=== PATIENT | male | born 1940 | race Caucasian/White ===

== ENCOUNTER 2018-08-27 14:11 | Outpatient (REF) | payer MEDICARE, BC, SELFPAY ==
[2018-08-27 18:39] LABS: Anion Gap 8.1 mmol/L (3-11); BUN 21 mg/dL (7-18); CO2 30.9 mmol/L (21.0-32.0); CREATININE 1.47 mg/dL (0.70-1.30); Calcium 9.3 mg/dL (8.5-10.1); Chloride 102 mmol/L (98-107); Estimated GFR 46.57 (mL/min/1.73m2); Glucose 88 mg/dL (70-100); Potassium 4.1 mmol/L (3.5-5.1); Sodium 141 mmol/L (136-145)
[2018-08-27 18:42] LABS: HCT 41.7 % (40.0-50.0); HGB 14.4 g/dL (13.5-17.5); Mean Corp. HGB Concentration 34.5 g/dL (32.0-36.0); Mean Corpuscular Hemoglobin 31.9 pg (27.0-33.0); Mean Corpuscular Volume 92.3 fL (80-95); Mean Platelet Volume 10.2 fL (8.0-11.0); Platelet Count 171 x1000/uL (130-400); RBC 4.52 m/cumm (4.50-6.00); RBC Distribution Width 12.5 % (11.8-14.1); White Blood Cell Count 6.37 k/cumm (4.4-10.8)
== END 2018-08-27 14:31 ==
LOC: NCHCN 14:11
PROVIDERS: PCP Internal Medicine; Visit Provider Family Medicine
DX: E55.9 Vitamin D deficiency, unspecified (principal); N18.1 Chronic kidney disease, stage 1; K51.90 Ulcerative colitis, unspecified, without complications
CPT/HCPCS: 80048; 82306; 85027

== ENCOUNTER 2018-09-09 00:41 | Outpatient (CLI) | payer MEDICARE, BC, SELFPAY ==
--- NOTE | 2018-09-09 14:00 | DI.CT_ITS ---
SYMPTOM/DIAGNOSIS: HEMOPTYSIS, R04.2, INFLUENZA WITH PNEUMONIA, J09.X1, FORMER SMOKER CHEST CT: CT scan of the chest was performed following the uneventful half dose administration of intravenous contrast material. There are no priors for comparison. Coronary artery calcifications are present. No significant thoracic adenopathy, pleural effusion or pneumothorax is identified. There is a small ground glass opacity in the left lower lobe laterally. No other focal consolidating infiltrates are seen. The tracheobronchial tree is unremarkable. No non calcified pulmonary nodules are identified. Degenerative changes are seen in the spine. The upper abdominal images show cysts in the right kidney. IMPRESSION: Small ground glass opacity in the left lower lobe laterally. Differential considerations include atelectasis, infectious or inflammatory pneumonia.
[2018-09-09 14:37] LABS: CREATININE 1.56 mg/dL (0.70-1.30); Estimated GFR 43.49 (mL/min/1.73m2)
[2018-09-09] MEDS: Omnipaque 350 MG/ML 100 ML BTL IJ (15:02)
== END 2018-09-09 01:01 ==
PROVIDERS: PCP Internal Medicine; Visit Provider Family Medicine
DX: R04.2 Hemoptysis (principal); J09.X1 Influenza due to identified novel influenza A virus with pneumonia; R91.1 Solitary pulmonary nodule; Z87.891 Personal history of nicotine dependence
CPT/HCPCS: 36415; 71260; 82565; J3490

== ENCOUNTER 2018-10-14 08:07 | Outpatient (REF) | payer MEDICARE, BC, SELFPAY ==
[2018-10-14 12:42] LABS: Cholesterol 198 mg/dL (50-200); HDL Cholesterol 51 mg/dL (40-60); LDL CHOLESTEROL 116 mg/dL (<100); Triglyceride 136 mg/dL (30-150)
== END 2018-10-14 08:27 ==
LOC: NCHCN 08:07
PROVIDERS: PCP Family Medicine; Visit Provider Family Medicine
DX: E78.5 Hyperlipidemia, unspecified (principal)
CPT/HCPCS: 80061; 83721

== ENCOUNTER 2020-01-04 13:16 | Outpatient (REF) | payer MEDICARE, BC, SELFPAY ==
[2020-01-04 19:33] LABS: HGB 13.5 g/dL (13.5-17.5); Mean Corp. HGB Concentration 33.8 g/dL (32.0-36.0); Mean Corpuscular Hemoglobin 30.9 pg (27.0-33.0); Mean Corpuscular Volume 91.5 fL (80-95); Mean Platelet Volume 10.2 fL (8.0-11.0); Platelet Count 264 x1000/uL (130-400); RBC 4.37 m/cumm (4.50-6.00); White Blood Cell Count 6.67 k/cumm (4.4-10.8)
[2020-01-04 19:50] LABS: Anion Gap 9.6 mmol/L (3-11); BUN 18 mg/dL (7-18); CO2 28.4 mmol/L (21.0-32.0); CREATININE 1.33 mg/dL (0.70-1.30); Calcium 9.6 mg/dL (8.5-10.1); Chloride 100 mmol/L (98-107); Estimated GFR 52.14 (mL/min/1.73m2); Glucose 85 mg/dL (74-106); NT-proBNP 85 pg/mL (<300); Potassium 3.9 mmol/L (3.5-5.1); Sodium 138 mmol/L (136-145)
[2020-01-06 10:32] LABS: PSA, Diagnostic 1.2 ng/mL (0.0-6.5)
== END 2020-01-04 13:36 ==
LOC: NCHCN 13:16
PROVIDERS: PCP Family Medicine; Visit Provider Family Medicine
DX: N18.1 Chronic kidney disease, stage 1 (principal); R60.9 Edema, unspecified; I82.402 Acute embolism and thrombosis of unspecified deep veins of left lower extremity; N40.0 Benign prostatic hyperplasia without lower urinary tract symptoms
CPT/HCPCS: 80048; 85027; 83880; 84153

== ENCOUNTER 2020-01-06 03:56 | Outpatient (CLI) | payer MEDICARE, BC, SELFPAY ==
[2020-01-06] MEDS: Omnipaque 350 MG/ML 100 ML BTL IJ (10:40)
--- NOTE | 2020-01-06 10:50 | DI.CT_ITS ---
EXAM: CT CHEST PE CTA CLINICAL HISTORY: DYSPNEA ON EXERTION,R06.09,LT ACUTE DVT,I82.402, ? PE TECHNIQUE: COMPARISON: No exams were available for comparison FINDINGS: CT angiography of the chest was performed with intravenous infusion of 85 cc of Omnipaque 350. Image s obtained through the upper abdomen show an incompletely imaged cyst the right kidney and unremarkab le appearance of visualized portions of left kidney, adrenals, liver, spleen, and pancreas. There is no evidence of mediastinal or hilar adenopathy. Tracheobronchial tree appears intact. No p leural effusion seen. Thoracic aorta is of normal diameter and there is no evidence of dissection. There are multiple pulmonary emboli in lower lobe vessels bilaterally involving lobar, segmental, and subsegmental pulmonary arterial circulation. No saddle embolus or other central embolus seen. IMPRESSION: Examination is positive for multiple pulmonary emboli in lower lobe pulmonary arterial vessels bilate rally. No evidence of right heart strain.
== END 2020-01-06 04:16 ==
PROVIDERS: PCP Family Medicine; Visit Provider Family Medicine
DX: I26.99 Other pulmonary embolism without acute cor pulmonale (principal)
CPT/HCPCS: 71275; J3490

== ENCOUNTER 2020-08-06 13:42 | Outpatient (REF) | payer MEDICARE, BC, SELFPAY ==
--- NOTE | 2020-08-06 12:30 | SKI_PTH ---
PATIENT: Juaquin Brito LOC: [facility]#:[id number] AGE/SX: 79/M ROOM: RE08/06/[address]: Bruce Manning : 1940 BED: DIS: 08/06/2020 SPEC #: [id number] RECD: 08/07/20 12:34 STATUS: ALBERTO REQ #: [id number] ROB: 08/06/20 12:[address]: Bruce Manning DEPT: Surgical Specimen RECD BY: Radha Davidson ENTERED: 08/07/20 12:35 SP TYPE: CESAR JACKSON DR: Louis Pool Tissues: 1 - SKIN BIOPSY(SHAVE/PUNCH) 2 - SKIN BIOPSY(SHAVE/PUNCH) Procedures: SKIN LEVEL 4 Comments: [id number]
== END 2020-08-06 13:43 | disposition home or self-care (01) ==
LOC: NCHCN 13:42
PROVIDERS: PCP Family Medicine; Visit Provider Nurse Practitioner Family
DX: L85.8 Other specified epidermal thickening (principal); L81.8 Other specified disorders of pigmentation
CPT/HCPCS: 88305

== ENCOUNTER 2021-05-15 20:37 | Outpatient (REF) | payer MEDICARE, BC, SELFPAY ==
[2021-05-15 20:24] LABS: Anion Gap 10.6 mmol/L (3-11); BUN 21 mg/dL (7-18); CO2 25.4 mmol/L (21.0-32.0); CREATININE 1.3 mg/dL (0.70-1.30); Calcium 9.2 mg/dL (8.5-10.1); Chloride 103 mmol/L (98-107); Estimated GFR 53.39 (mL/min/1.73m2); Glucose 93 mg/dL (74-106); Potassium 4.3 mmol/L (3.5-5.1); Sodium 139 mmol/L (136-145)
[2021-05-20 10:33] LABS: Hepatitis C Ab w Rflx HCV PCR Negative (Negative)
== END 2021-05-15 20:38 | disposition home or self-care (01) ==
LOC: NCHCN 20:37
PROVIDERS: PCP Family Medicine; Visit Provider Family Medicine
DX: I10 Essential (primary) hypertension (principal); N18.1 Chronic kidney disease, stage 1; Z11.59 Encounter for screening for other viral diseases
CPT/HCPCS: 80048; 86803

== ENCOUNTER 2022-11-10 16:21 | Outpatient (REF) | payer MEDICARE, BC, SELFPAY ==
[2022-11-10 16:01] LABS: Anion Gap 7.5 mmol/L (3-11); BUN 18 mg/dL (7-18); CO2 26.5 mmol/L (21.0-32.0); CREATININE 1.3 mg/dL (0.70-1.30); Calcium 9.4 mg/dL (8.5-10.1); Calculated LDL 97 mg/dL (<100); Chloride 105 mmol/L (98-107); Cholesterol 174 mg/dL (<200); Estimated GFR 55.53 (mL/min/1.73m2); Glucose 86 mg/dL (74-106); HDL Cholesterol 56 mg/dL (40-60); Potassium 4.3 mmol/L (3.5-5.1); Sodium 139 mmol/L (136-145); Triglyceride 107 mg/dL (<150)
== END 2022-11-10 16:22 | disposition home or self-care (01) ==
LOC: NCHCN 16:21
PROVIDERS: PCP Family Medicine; Visit Provider Family Medicine
DX: I10 Essential (primary) hypertension (principal); N18.1 Chronic kidney disease, stage 1; E78.5 Hyperlipidemia, unspecified
CPT/HCPCS: 80048; 80061

== ENCOUNTER 2022-11-18 08:36 | Emergency (ER) | payer MEDICARE, BC, SELFPAY ==
[2022-11-18] VITALS (42 sets, daily range): BP systolic 111–140; BP diastolic 57–89; PULSE 49–90; RESP 11–18; TEMP 36.4; O2SAT 93–100
--- NOTE | 2022-11-18 08:30 | RT.EKG_ITS ---
APPROVED REPORT Exam: Resting ECG Reason for Exam: chest pain Patient Location: E HR:66 bpm ECG Measurements Heart Rate 66 AXIS WI 218 P 61 QRSd 96 QRS 43 QT 401 T 31 QTc 422 Conclusion Sinus rhythm...normal P axis, V-rate 60- 99 Borderline prolonged WI interval...WI >212, V-rate 50- 90 Narrow complex normal sinus rhythm at a rate of 66 with first-degree AV block and a WI interval of 21 8. Normal axis. QTc within normal limits. No ST segment abnormalities. No T wave inversions. No prior for comparison. No acute injury pattern.
--- NOTE | 2022-11-18 08:42 | W.ED.GENAD ---
Discharge Plan Disposition Patient Disposition: Home Discharge Details Clinical Impression: Chest pain, unspecified, Normocytic anemia Primary Care Provider: Louis Pool ED Provider: Louis Salazar Home Meds and New Rx's Prescriptions: Continued omeprazole 40 MG capsule,delayed release(DR/EC) 40 mg PO DAILY fluocinonide 30 GM cream 30 gm Topical PRN finasteride 5 MG tablet 5 mg PO DAILY cholecalciferol (vitamin D3) 50 mcg (2,000 unit) capsule 50 mcg PO DAILY lisinopril 30 mg tablet 30 mg PO DAILY amlodipine 5 mg tablet 5 mg PO DAILY Xarelto 10 mg tablet 10 mg PO DAILY Rx Instructions: for 35 days albuterol sulfate [Proventil HFA] 90 mcg/actuation HFA aerosol inhaler 1 inh inhalation Q4H sildenafil [Viagra] 50 mg tablet 50 mg PO DAILY PRN Rx Instructions: administer 30 minutes to 4 hours before activity mesalamine 1,000 mg suppository 1 g NM QHS ibuprofen 200 mg tablet 400 mg PO Q6H PRN aspirin [Aspir-81] 81 MG tablet,delayed release (DR/EC) 81 mg PO DAILY Discharge Instructions Instructions: Chest Pain (ED) Additional Instructions: Please read all of the information that accompanies these instructions. You were seen in the emergency department for your chest pain. Your blood work showed no sign of heart attack. Please schedule an appointment with your primary care provider later this week. Please return to the emergency department if develop any sweating with your chest pain any difficulty breathing or have any other concerns. Your blood work is similar to prior assessment and you have a mild anemia. If you develop black or bloody stools please return to the emergency department. Discharge Data Discharge Date/Time-TO BE ENTERED AT DEPARTURE: 11/18/22 13:39 Medical Decision Making This is an overall very well-appearing normothermic and not tachycardic 82-year-old male with left-sided chest pain for the past several hours concerning for multiple etiologies. His ECG is nonischemic and his chest pain is not typical for ACS as he lacks any symptoms associated with diaphoresis and any radiation. He certainly has risk factors for ACS based on his age and history of hypertension and hyperlipidemia. No recent URI nor any positional component to suggest pericarditis. PE certainly also a possibility as he has remotely had an unprovoked left lower extremity DVT although he has been adherent with his rivaroxaban. He has not been vomiting to suggest increased risk for esophageal rupture. No fevers nor cough to suggest increased risk for pneumonia. No rash to chest to suggest zoster. No history of trauma to suggest increased risk for pneumothorax or pulmonary contusions or rib fractures or rib contusions. He is not hypotensive nor is he a dialysis patient to suggest increased risk for tamponade. Given that he is adherent with his rivaroxaban will obtain a D-dimer to assess for PE. No tearing quality to suggest dissection. HEART SCORE Chest pain Diagnostic Protocol: - [History/Physical/Gestalt: Slightly Suspicious (0)] - [EKG: Normal and/or unchanged from prior EKG (0)] - [AGE: 65 and older (+2)] - [RISK FACTORS: 1 - 2 risk factors (+1)] - [TROPONIN: <= normal limit (0)] - TOTAL SCORE: 3 - Risk Factors: DM, current or recent smoker, HTN, HLD, family hx of CAD, obesity - INTERPRETATION: With a total score of 3 or less, risk of major cardiac event within six weeks 1.7%, likely lower with two negative troponins. [I explained to the patient that the risk of subsequent major cardiac event within 1 month is not 0, however risk predicted to be less than 2%. Patient verbalized understanding, accepts this risk and shared and the decision for discharge with PCP follow-up for further evaluation and management. They understand to return to the ED immediately with any worsening symptoms, new symptoms or other concerns.] 10:20 AM CBC with mild normocytic anemia. No leukocytosis. No thrombocytopenia negative age-adjusted D-dimer. CKD but no TEOFILO. Negative troponin. Normal magnesium. 11 AM I have asked health embossing unit operator Aaliyah to have the patient seen within the week by his primary care provider. 1:15 PM Repeat troponin negative. Patient discharged with return indications and outpatient PCP follow-up. Chronic conditions affecting the care of the patient: Prior DVT history of hypertension hyperlipidemia. History obtained from an outside historian: N/A External record review: [facility] [place] Diagnostic interpretations performed by me: [Per my independent interpretation chest x-ray shows:] No acute cardiopulmonary process on two-view chest. Per my independent interpretation EKG shows: Narrow complex normal sinus rhythm at a rate of 66 with first-degree AV block and a NM interval of 218. Normal axis. QTc within normal limits. No ST segment abnormalities. No T wave inversions. No prior for comparison. No acute injury pattern. Medications: Acetaminophen Social determinants of health affecting disposition: N/A Management discussed with: N/A Treatment/interventions considered: stress testing but will defer given low HEART score Response to therapies provided: pain improved w/acetaminophen & lidoderm patch. HPI General Date/Time Provider Initiated Documentation: 11/18/22 08:42. HPI Narrative: This is an 82-year-old male with a history of hypertension and hyperlipidemia and prior DVT on rivaroxaban who presents via private vehicle in the setting of left-sided chest pain that began this morning. Patient reports that at 6 AM he began to have pain in the left side of his chest. It was worse when taking a deep breath. It does not radiate. It is not associated with any diaphoresis. He has been adherent with his home medications. He denies routine tobacco and ethanol. He has had no rash to his chest. He has had no vomiting fevers nor any trauma to his chest. He denies history of coronary artery disease. He also denies history of diabetes. He is having no calf pain nor any lower extremity edema. He has not recently had a cough. Related Data Home Medications Medication Instructions Recorded Confirmed finasteride 5 mg tablet 5 mg PO DAILY 01/01/15 11/18/22 fluocinonide 0.05 % topical cream 30 gm topical PRN 01/01/15 11/18/22 omeprazole 40 mg capsule,delayed 40 mg PO DAILY 01/01/15 11/18/22 release aspirin 81 mg tablet,delayed 81 mg PO DAILY 01/29/15 11/18/22 release (Aspir-) albuterol sulfate 90 mcg/actuation 1 inh inhalation Q4H 12/16/21 11/18/22 aerosol inhaler (Proventil HFA) amlodipine 5 mg tablet 5 mg PO DAILY 12/16/21 11/18/22 cholecalciferol (vitamin D3) 50 50 mcg PO DAILY 12/16/21 11/18/22 mcg (2,000 unit) capsule ibuprofen 200 mg tablet 400 mg PO Q6H PRN 12/16/21 11/18/22 lisinopril 30 mg tablet 30 mg PO DAILY 12/16/21 11/18/22 mesalamine 1,000 mg rectal 1 g NM QHS 12/16/21 11/18/22 suppository rivaroxaban 10 mg tablet (Xarelto) 10 mg PO DAILY 12/16/21 11/18/22 sildenafil 50 mg tablet (Viagra) 50 mg PO DAILY PRN 12/16/21 11/18/22 Allergies Allergy/AdvReac Type Severity Reaction Status Date / Time apixaban [From Eliquis] Allergy Verified 11/18/22 08:46 PFSH All Active Problems (Updated 11/18/22 @ 11:14 by Louis Salazar MD) Chest pain, unspecified (Acute) Normocytic anemia (Acute) Pharyngoesophageal dysphagia (Acute) 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 (Acute) Medical History Acute deep vein thrombosis (DVT) of left lower extremity Adenomatous colon polyp Allergic rhinitis BPH (benign prostatic hyperplasia) Chronic eczematoid otitis externa Chronic kidney disease, stage 3 Colitis Deep vein blood clot of left lower extremity Dermatitis of both ear canals Diverticulitis Dysphagia, pharyngeal phase Erectile dysfunction Fatigue Hearing loss, left Hoarseness Hyperlipidemia Hypertension Lightheadedness Pill dysphagia Psoriasis Pulmonary emboli Renal insufficiency Ulcerative proctitis Umbilical hernia Vitamin D deficiency Surgical History History of bilateral carpal tunnel release History of colonoscopy Social History Smoking/Tobacco Use Status: Former Tobacco Use Smoking risk assessment performed?: Yes Alcohol Intake: never Drug use: Never Number of Children: 2 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 Head: Normocephalic, atraumatic. Eye: Pupils equal, round reactive to light. Extraocular eye movements intact. No conjunctival injection. No scleral icterus. Ear, nose, mouth, throat: Grossly normal inspection. Normal voice, handling secretions normally. Neck: Trachea midline. Cardiovascular: Well-perfused distal extremities. Regular rate and rhythm. Chest wall: No rash to chest wall. Left-sided chest pain is reproducible. Respiratory: Nonlabored respiration. Clear lungs bilaterally. Gastrointestinal: Nondistended abdomen. Soft nontender abdomen. Musculoskeletal: No significant lower extremity pitting edema. Moving all 4 extremities spontaneously. Skin: Normal for age and race, grossly normal temperature and turgor. No acute rash. Neurologic: Alert and appropriate, no apparent acute deficits. Psychiatric: Mood and manner are appropriate. Grooming and personal hygiene are appropriate.
--- NOTE | 2022-11-18 09:00 | DI.RAD_ITS ---
Exam(s) XR CHEST 2V PA LATERAL EXAM: XR CHEST 2V PA LATERAL CLINICAL HISTORY: Chest pain. TECHNIQUE: 2D digital imaging was performed. COMPARISON: CT CT CHEST W from 09/09/2018 FINDINGS: 2 views: Heart size is normal. The mediastinum is not widened. Lungs are clear. No infiltrates nor pleural effusions. IMPRESSION: No acute pulmonary findings. DATA REPOSITORY: RADIATION DOSE DELIVERED:
[2022-11-18 09:15] LABS: Abs Immature Grans 0.01 10^3/uL (0.0-0.06); Absolute Basophil Count 0.03 10^3/uL (0.0-0.2); Absolute Lymphocyte Count 1.71 10^3/uL (1.2-3.4); Absolute Monocyte Count 0.52 10^3/uL (0.1-0.8); Absolute Neutrophil Count 2.72 10^3/uL (1.2-6.7); Basophils % 0.6; HCT 38.3 % (40.0-50.0); HGB 13.1 g/dL (13.5-17.5); Immature Grans % 0.2; Lymphocytes % 33.6; MCH 31.5 pg (27.0-33.0); MCHC 34.2 % (32.0-36.0); MCV 92 fL (80-95); MPV 9.3 fL (8.0-11.0); Monocytes % 10.2; Neutrophils % 53.4; Platelet Count 177 10^3/uL (130-400); RBC 4.16 10^6/uL (4.36-5.78); RDW 12.4 % (11.8-14.1); RDW-SD 41.9 fL; WBC 5.09 10^3/uL (4.4-10.8)
[2022-11-18 09:39] LABS: ALT 22 U/L (16-63); AST 19 U/L (15-37); Albumin 3.8 g/dL (3.4-5.0); Alkaline Phosphatase 81 U/L (46-116); Anion Gap 6.3 mmol/L (3-11); BUN 18 mg/dL (7-18); Bilirubin, Total 0.7 mg/dL (0.2-1.0); CO2 28.7 mmol/L (21.0-32.0); CREATININE 1.5 mg/dL (0.70-1.30); Calcium 9.1 mg/dL (8.5-10.1); Chloride 106 mmol/L (98-107); Estimated GFR 46.77 (mL/min/1.73m2); Glucose 92 mg/dL (74-106); Magnesium 1.9 mg/dL (1.8-2.4); Potassium 3.9 mmol/L (3.5-5.1); Sodium 141 mmol/L (136-145); Total Protein 7.6 g/dL (6.4-8.2); Troponin I < 50 ng/L (<or=60)
[2022-11-18] MEDS: Acetaminophen 500 MG TAB 1000 MG PO (09:49)
[2022-11-18 09:52] LABS: D-Dimer 719 ng/mlFEU (<500)
[2022-11-18] MEDS: Lidocaine 5% Patch 1 PATCH TP (11:01)
[2022-11-18 13:06] LABS: Troponin I < 50 ng/L (<or=60)
--- NOTE | 2022-11-18 17:22 | NUR.NOTE ---
Nursing Note: Referral faxed to PCP for chest pain to be seen within 1 week. Did talk to Anitha at [facility] earlier in the day when the fax would not go through and gave her the information in case of that.
== END 2022-11-18 13:39 | disposition home or self-care (01) ==
PROVIDERS: Emergency Provider Emergency Medicine; PCP Family Medicine
DX: R07.9 Chest pain, unspecified (principal); D64.9 Anemia, unspecified
CPT/HCPCS: 80053; 93005; 99284; 71046; 83735; 84484; 85025; 85379; 93010; 99283

== ENCOUNTER 2023-05-07 11:05 | Outpatient (REF) | payer MEDICARE, BC, SELFPAY ==
[2023-05-07 14:25] LABS: HCT 40.5 % (40.0-50.0); HGB 13.8 g/dL (13.5-17.5); MCH 30.7 pg (27.0-33.0); MCHC 34.1 % (32.0-36.0); MCV 90 fL (80-95); MPV 9.8 fL (8.0-11.0); Platelet Count 181 10^3/uL (130-400); RDW 12.4 % (11.8-14.1); RDW-SD 40.2 fL; WBC 6.05 10^3/uL (4.4-10.8)
[2023-05-07 14:57] LABS: Iron 82 ug/dL (65-175); Total Iron Binding Capacity 279 ug/dL (250-450); Transferrin Sat 29 % (20-55)
[2023-05-07 14:59] LABS: Ferritin 64 ng/mL (26-388)
[2023-05-07 15:01] LABS: Folate 15.3 ng/mL (8.6-20.0); Vitamin B12 215 pg/mL (193-986)
== END 2023-05-07 11:06 | disposition home or self-care (01) ==
LOC: NCHCN 11:05
PROVIDERS: PCP Family Medicine; Visit Provider Family Medicine
DX: D64.9 Anemia, unspecified (principal); Z79.899 Other long term (current) drug therapy
CPT/HCPCS: 85027; 82607; 82728; 82746; 83540; 83550

== ENCOUNTER 2023-05-25 12:43 | Outpatient (REF) | payer MEDICARE, BC, SELFPAY ==
--- NOTE | 2023-05-25 11:15 | SKI_PTH ---
PATIENT: Juaquin Brito LOC: [facility] U#:[id number] AGE/SX: 82/M ROOM: RE05/25/[address]: Bobo Saab MD : 1940 BED: DIS: 05/25/2023 SPEC #: [id number] RECD: 05/25/23 17:58 STATUS: ALBERTO REQ #: [id number] ROB: 05/25/23 11:[address]: Bobo Saab DEPT: Surgical Specimen RECD BY: Radha Davidson ENTERED: 05/25/23 17:59 SP TYPE: CESAR JACKSON DR: Louis Pool Tissues: 1 - SKIN BIOPSY(SHAVE/PUNCH) Procedures: SKIN LEVEL 4 Comments: [id number]
== END 2023-05-25 12:44 | disposition home or self-care (01) ==
LOC: LBN 12:43
PROVIDERS: PCP Family Medicine; Visit Provider Otolaryngology
DX: C44.329 Squamous cell carcinoma of skin of other parts of face (principal)
CPT/HCPCS: 88305

== ENCOUNTER 2023-10-21 11:46 | Emergency (ER) | payer MEDICARE, BC, SELFPAY ==
[2023-10-21] VITALS (16 sets, daily range): BP systolic 130–166; BP diastolic 59–77; PULSE 55–75; RESP 11–17; TEMP 36.4–36.8; O2SAT 95–98
--- NOTE | 2023-10-21 11:45 | RT.EKG_ITS ---
APPROVED REPORT Exam: Resting ECG Reason for Exam: chest pain Patient Location: E HR:65 bpm ECG Measurements Heart Rate 65 AXIS MA 201 P 70 QRSd 97 QRS 25 QT 388 T 19 QTc 404 Conclusion Sinus rhythm...normal P axis, V-rate 60- 99 Physician: no stemi
[2023-10-21 12:09] LABS: Abs Immature Grans 0.02 10^3/uL (0.0-0.06); Absolute Basophil Count 0.03 10^3/uL (0.0-0.2); Absolute Eosinophil Count 0.16 10^3/uL (0.0-0.7); Absolute Monocyte Count 0.51 10^3/uL (0.1-0.8); Absolute Neutrophil Count 3.23 10^3/uL (1.2-6.7); Basophils % 0.5 %; Eosinophils % 2.6 %; HCT 41.8 % (40.0-50.0); HGB 14.1 g/dL (13.5-17.5); Immature Grans % 0.3 %; Lymphocytes % 34.7 %; MCH 31.4 pg (27.0-33.0); MCHC 33.7 % (32.0-36.0); MCV 93 fL (80-95); MPV 9.4 fL (8.0-11.0); Monocytes % 8.4 %; Neutrophils % 53.5 %; Platelet Count 171 10^3/uL (130-400); RBC 4.49 10^6/uL (4.36-5.78); RDW 12.3 % (11.8-14.1); RDW-SD 42.2 fL; WBC 6.05 10^3/uL (4.4-10.8)
--- NOTE | 2023-10-21 12:11 | ED.GENADUL_ITS ---
Discharge Plan Disposition Patient Disposition: Home Condition: Good Discharge Details Clinical Impression: Elevated blood pressure reading, Chest pain Primary Care Provider: Louis Pool ED Provider: Rashmi Cruz Home Meds and New Rx's Prescriptions: Continued atorvastatin 10 mg tablet 40 mg PO DAILY betamethasone dipropionate 0.05 % cream 1 applic topical BID PRN mesalamine 1,000 mg suppository 1 g NE DAILY omeprazole 40 MG capsule,delayed release(DR/EC) 20 mg PO DAILY fluocinonide 30 GM cream 30 g Topical PRN finasteride 5 MG tablet 5 mg PO DAILY cholecalciferol (vitamin D3) 50 mcg (2,000 unit) capsule 50 mcg PO DAILY lisinopril 30 mg tablet 30 mg PO DAILY amlodipine 5 mg tablet 5 mg PO DAILY Xarelto 10 mg tablet 10 mg PO DAILY Rx Instructions: for 35 days albuterol sulfate [Proventil HFA] 90 mcg/actuation HFA aerosol inhaler 1 inh inhalation Q4H sildenafil [Viagra] 50 mg tablet 50 mg PO DAILY PRN Rx Instructions: administer 30 minutes to 4 hours before activity mesalamine 1,000 mg suppository 1 g NE QHS ibuprofen 200 mg tablet 400 mg PO Q6H PRN sulfacetamide sodium-sulfur [Avar] 10-5 % (w/w) cleanser 1 applic topical DAILY hydrocortisone-acetic acid 1-2 % drops 4 drp otic (ear) BID Discharge Instructions Instructions: Chest Pain (ED) Additional Instructions: Your labs and imaging are reassuring here today. No evidence of strain on your heart, blood clot or infection. Please continue to encourage hydration. You may use Tylenol send for discomfort. I am concerned that your pain may be associated with muscle strain from raking recently. Encourage gentle stretching, heat/ice, topical Lidoderm patches. Please follow-up with your primary care provider in the next 2 weeks for reevaluation. If you develop fever/chills, increased pain, shortness of breath or other new/worsening symptoms, please seek care urgently once again. Referrals: Louis Pool [Primary Care Provider] - Discharge Data Discharge Date/Time-TO BE ENTERED AT DEPARTURE: 10/21/23 13:36 HPI General Date/Time Provider Initiated Documentation: 10/21/23 11:52 . Limitations to Documentation: no limitations . Information obtained by: patient, RN notes reviewed and old records reviewed . History of Present Illness 83 year old M presents to the emergency department with the chief complaint of left sided CP, described as moderate, Quality is described as aching, and is localized to the chest. Patient reports no radiation. Patient started experiencing this day(s) and it has been now resolved (resolves with immobility). Immobilization improves symptom(s), Movement worsens symptoms . Patient notes no other symptoms.. Patient did receive the following treatments prior to arrival, none Related Data Home Medications Medication Instructions Recorded Confirmed finasteride 5 mg tablet 5 mg PO DAILY 01/01/15 10/21/23 fluocinonide 0.05 % topical cream 30 g topical PRN 01/01/15 10/21/23 omeprazole 40 mg capsule,delayed 20 mg PO DAILY 01/01/15 10/21/23 release albuterol sulfate 90 mcg/actuation 1 inh inhalation Q4H 12/16/21 10/21/23 aerosol inhaler (Proventil HFA) amlodipine 5 mg tablet 5 mg PO DAILY 12/16/21 10/21/23 cholecalciferol (vitamin D3) 50 50 mcg PO DAILY 12/16/21 10/21/23 mcg (2,000 unit) capsule ibuprofen 200 mg tablet 400 mg PO Q6H PRN 12/16/21 10/21/23 lisinopril 30 mg tablet 30 mg PO DAILY 12/16/21 10/21/23 mesalamine 1,000 mg rectal 1 g NE QHS 12/16/21 10/21/23 suppository rivaroxaban 10 mg tablet (Xarelto) 10 mg PO DAILY 12/16/21 10/21/23 sildenafil 50 mg tablet (Viagra) 50 mg PO DAILY PRN 12/16/21 10/21/23 atorvastatin 10 mg tablet 40 mg PO DAILY 05/13/23 10/21/23 betamethasone dipropionate 0.05 % 1 applic topical BID PRN 05/13/23 10/21/23 topical cream mesalamine 1,000 mg rectal 1 g NE DAILY 05/13/23 10/21/23 suppository hydrocortisone-acetic acid 1 %-2 % 4 drp otic (ear) BID 10/21/23 10/21/23 ear drops sulfacetamide sodium-sulfur 10 %-5 1 applic topical DAILY 05/01/24 05/01/24 % (w/w) topical cleanser (Avar) Allergies Allergy/AdvReac Type Severity Reaction Status Date / Time apixaban [From Eliquis] Allergy Intermediate Skin Rash Verified 10/21/23 11:56 General Stated Complaint: Chest Pain [place]: 3 Review of Systems Constitutional Constitutional: Reports as per HPI, Denies chills, Denies fever(s), Denies headache(s), Denies lethargy and Denies poor appetite ENT Ears, Nose, Mouth, and Throat: Denies dizziness and Denies headache(s) Cardiovascular Cardiovascular: Reports as per HPI, Denies dyspnea and Denies dyspnea on exertion Respiratory Respiratory: Reports as per HPI, Denies chest congestion, Denies cough, Denies pain on inspiration, Denies pain with cough, Denies dyspnea and Denies dyspnea on exertion Gastrointestinal Gastrointestinal: Reports as per HPI, Denies abdominal pain, Denies diarrhea, Denies nausea and Denies vomiting Genitourinary Genitourinary: Denies system reviewed and no additional complaints, except as documented (denies change in urinary habits) Musculoskeletal Musculoskeletal: Reports as per HPI and Denies back pain Integumentary/Breasts Skin/Breast: Reports as per HPI and Denies rash Neurologic Neurologic: Reports as per HPI, Denies dizziness and Denies headache(s) Exam Const General: cooperative, healthy appearing, comfortable, no acute distress and well developed Nutritional Appearance: average body habitus and well nourished Orientation: alert, awake and oriented x3 [facility] [place] Head: normal to inspection Ears: hearing grossly normal bilaterally Mouth: moist mucous membranes Chest Chest: normal inspection of the chest, normal palpation of entire chest wall and no crepitus Resp Effort & Inspection: normal respiratory effort, able to speak in complete sentences and no respiratory distress Auscultation: clear to auscultation bilaterally, no rales, no rhonchi and no wheezes Cardio Rate: regular rate Rhythm: regular rhythm Heart Sounds: S1 normal and S2 normal GI Inspection: normal to inspection, no edema and non-distended Palpation: soft and nontender Back/Spine/Pelvis Back: no CVA tenderness Thoracic/Lumbar Spine: thoracic and lumbar spine normal to inspection Skin General skin exam: no rashes or lesions noted Trauma: no lacerations or abrasions Neuro General: patient alert, patient awake and patient oriented x3 Cognition: normal cognition Speech: speech normal Gait: normal gait Extrem General: normal to inspection, capillary refill normal, no pedal edema, no calf tenderness and normal gait Course Vital Signs Vital signs: Vital Signs Temperature 36.8 C 10/21/23 11:52 Pulse 70 10/21/23 11:52 Respiratory Rate 14 10/21/23 11:52 Blood Pressure 156/77 H 10/21/23 11:52 Pulse Oximetry 97 10/21/23 11:52 Temperature 36.8 C 10/21/23 11:52 Pulse 70 10/21/23 11:52 Respiratory Rate 12 10/21/23 11:56 Respiratory Effort Short of Breath 10/21/23 11:56 Respiratory Depth Normal 10/21/23 11:56 Respiratory Pattern Normal 10/21/23 11:56 Blood Pressure 156/77 H 10/21/23 11:52 Blood Pressure Position Sitting 10/21/23 11:52 Pulse Oximetry 97 10/21/23 11:52 Oxygen Delivery Method Room Air 10/21/23 11:52 Oxygen Flow Rate 0 10/21/23 11:52 Pain Level 6 10/21/23 11:56 Medical Decision Making Patient is a pleasant 83 year old male with PMH of DVT, renal impairment, pulmonary emboli, hypertension, hyperlipidemia, presenting today with chief complaint of left-sided chest pain. He reports that the pain began few days ago, describes an insidious onset. He reports that it is worse when he takes a deep breath or cough. It is not exacerbated with just simply walking a longer distance. States that pain is over the left side of his chest and feels like a muscular pain. He reports that he has been working in his lawn, raking. He is anticoagulated, no missed doses. He did recently travel, stayed in [place] for a week. Denies any known sick contacts. Reports a mild cough but sounds like this is chronic, no acute changes. States that he also has chronic sinus issues. No fevers or chills. Denies feeling short of breath but feels like when he tries to take a deep breath in, secondary to the chest pain, he will catch his breath. On exam, patient appears nontoxic. He is hemodynamically stable. His lungs are clear. Pain is not reproducible with palpation. No rash on his chest. No crepitus or palpable evidence of trauma. Normal cardiac exam. 2+ distal pulses. No calf tenderness, no lower extremity edema. Most likely, his discomfort is associated with MSK discomfort. He declines any analgesics at this time. However, with his risk factors, also consider ACS, DVT. With his presenting symptoms, I would find DVT more likely than ACS given what seems to be exacerbating his pain. Will screen with a D-dimer. Will review ECG, troponin. As this has been going on for a few days, I believe troponin x 1 is sufficient if this first 1 is negative. As patient is anticoagulated and again, his history is not most consistent with ACS or PE, will hold off on immediate medical intervention. Discussed this plan with the patient who is in agreement. FINDINGS: 2 views: Heart size is normal. The mediastinum is not widened. Lungs are clear. No infiltrates nor pleural effusions. Labs reviewed. No acute abnormality. D-dimer is within age-adjusted normal. Discussed the findings with the patient. Likely associated with his increased waking and exertion. Likely musculoskeletal. This does fit with his exacerbating factors. We discussed supportive care. He continues to decline any analgesics. Return precautions discussed. Advise follow-up with primary care. All his questions and concerns were addressed and he is in agreement this plan. 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 (Acute) Medical History (Updated 10/21/23 @ 13:22 by MACARENA Lowery) Dizziness and giddiness Nasal congestion Chronic renal impairment Hemoptysis Localized skin eruption Dyspnea Spasm Rosacea Hx of peptic ulcer Nummular eczema Hx of thromboembolism Ulcerative colitis Chronic eczematoid otitis externa Pill dysphagia Deep vein blood clot of left lower extremity Allergic rhinitis Erectile dysfunction Acute deep vein thrombosis (DVT) of left lower extremity Pulmonary emboli Hoarseness Dysphagia, pharyngeal phase Dermatitis of both ear canals Fatigue Hearing loss, left Lightheadedness Vitamin D deficiency Chronic kidney disease, stage 3 BPH (benign prostatic hyperplasia) Renal insufficiency Adenomatous colon polyp Diverticulitis Umbilical hernia Hypertension Ulcerative proctitis Psoriasis Hyperlipidemia Colitis Surgical History History of bilateral carpal tunnel release History of colonoscopy Social History Smoking/Tobacco Use Status: Former Tobacco Use Smoking risk assessment performed?: Yes Alcohol Intake: never Drug use: Never Substance use type: does not use Number of Children: 2 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
--- NOTE | 2023-10-21 12:29 | DI.RAD_ITS ---
Exam(s) XR CHEST 2V PA LATERAL EXAM: XR CHEST 2V PA LATERAL CLINICAL HISTORY: CP. TECHNIQUE: 2D digital imaging was performed. COMPARISON: CR XR CHEST 2V PA LATERAL from 11/18/2022 FINDINGS: 2 views: Heart size is normal. The mediastinum is not widened. Lungs are clear. No infiltrates nor pleural effusions. IMPRESSION: No acute pulmonary findings. DATA REPOSITORY: RADIATION DOSE DELIVERED:
[2023-10-21 12:35] LABS: ALT 24 U/L (16-63); AST 18 U/L (15-37); Alkaline Phosphatase 84 U/L (46-116); Anion Gap 8.5 mmol/L (3-11); BUN 19 mg/dL (7-18); Bilirubin, Total 0.8 mg/dL (0.2-1.0); CO2 27.5 mmol/L (21.0-32.0); CREATININE 1.3 mg/dL (0.70-1.30); Calcium 9.1 mg/dL (8.5-10.1); Chloride 104 mmol/L (98-107); Estimated GFR 55.19 (mL/min/1.73m2); Glucose 93 mg/dL (74-106); Magnesium 1.8 mg/dL (1.8-2.4); Sodium 140 mmol/L (136-145); Total Protein 8.1 g/dL (6.4-8.2); Troponin I < 50 ng/L (< or =60)
[2023-10-21 12:53] LABS: D-Dimer 608 ng/mlFEU (<500)
== END 2023-10-21 13:36 | disposition home or self-care (01) ==
PROVIDERS: Emergency Provider Physician Assistant; PCP Family Medicine
DX: R07.9 Chest pain, unspecified (principal); I12.9 Hypertensive chronic kidney disease with stage 1 through stage 4 chronic kidney disease, or unspecified chronic kidney disease; N18.30 Chronic kidney disease, stage 3 unspecified; E78.5 Hyperlipidemia, unspecified; Z86.711 Personal history of pulmonary embolism; Z86.718 Personal history of other venous thrombosis and embolism; Z79.01 Long term (current) use of anticoagulants
CPT/HCPCS: 36415; 80053; 93005; 99285; 71046; 83735; 84484; 85025; 85379; 93010; 99284

== ENCOUNTER → 2024-01-08 13:43 | Outpatient (CLI) | payer MEDICARE, BC, SELFPAY ==
--- NOTE | 2024-01-08 14:11 | DI.RAD_ITS ---
Exam(s) XR FOOT LT COMPLETE EXAM: XR FOOT LT COMPLETE CLINICAL HISTORY: Pain in lt foot, M79.672; minor effusion secondary to hallux valgus. TECHNIQUE: 2D digital imaging was performed. Three views. COMPARISON: No exams were available for comparison FINDINGS: BONES: No acute fracture is present. No bony destructive lesion is seen. Prominent heel spurs. JOINTS: No dislocation present. Mild degenerative changes of 1st MTP joint. Minimal hallux valgus. Mild degenerative changes elsewhere. SOFT TISSUE: Swelling medial to 1st MTP joint. Chronic appearing bony density adjacent to the 1st me tatarsal head. IMPRESSION: Mild degenerative changes and mild swelling at the 1st MTP joint. Prominent heel spurs. DATA REPOSITORY: RADIATION DOSE DELIVERED:
== END ==
PROVIDERS: PCP Student in an Organized Health Care Education/Training Program; Visit Provider Student in an Organized Health Care Education/Training Program
DX: M79.672 Pain in left foot (principal); M77.32 Calcaneal spur, left foot
CPT/HCPCS: 73630

== ENCOUNTER 2024-03-29 02:05 | Outpatient (CLI) | payer MEDICARE, BC, SELFPAY ==
--- NOTE | 2024-03-29 06:45 | DI.RAD_ITS ---
Exam(s) XR FOOT LT COMPLETE EXAM: XR FOOT LT COMPLETE CLINICAL HISTORY: Left foot pain,m79.672. TECHNIQUE: 2D digital imaging was performed. Three views. COMPARISON: CR XR FOOT LT COMPLETE from 01/08/2024 FINDINGS: BONES: No acute fracture is present. No bony destructive lesion is seen. Heel spurs. JOINTS: No dislocation present. Mild degenerative changes 1st MTP joint. Minimal hallux valgus. SOFT TISSUE: Mild swelling adjacent to 1st metatarsal head. Stable appearance of small bony density. IMPRESSION: Mild degenerative changes 1st MTP joint. Heel spurs. DATA REPOSITORY: RADIATION DOSE DELIVERED:
--- NOTE | 2024-03-29 06:45 | DI.RAD_ITS ---
Exam(s) XR FOOT RT COMPLETE EXAM: XR FOOT RT COMPLETE CLINICAL HISTORY: Right foot pain,m79.671. TECHNIQUE: 2D digital imaging was performed. Three views. COMPARISON: None FINDINGS: BONES: No acute fracture is present. No bony destructive lesion is seen. Prominent calcaneal spurs. JOINTS: No dislocation present. Moderate to severe degenerative changes present at the 1st MTP joint . Periarticular spurring. Mild hallux valgus. Little degenerative changes elsewhere. Plantar arch is maintained. SOFT TISSUE: Normal. IMPRESSION: Degenerative changes 1st MTP joint. Heel spurs. DATA REPOSITORY: RADIATION DOSE DELIVERED:
== END 2024-03-29 02:25 ==
LOC: DI 02:05
PROVIDERS: PCP Student in an Organized Health Care Education/Training Program; Visit Provider Podiatrist
DX: M79.672 Pain in left foot (principal); M79.671 Pain in right foot
CPT/HCPCS: 73630

== ENCOUNTER → 2024-04-20 14:15 | Outpatient (BNVA) | payer MEDICARE, BC, SELFPAY | PROVIDERS: PCP Student in an Organized Health Care Education/Training Program; Referring Provider Student in an Organized Health Care Education/Training Program; Visit Provider Podiatrist | DX: M79.671 Pain in right foot (principal); M79.672 Pain in left foot | CPT/HCPCS: 99213 ==

== ENCOUNTER 2024-05-06 00:11 | Outpatient (CLI) | payer MEDICARE, BC, SELFPAY ==
--- NOTE | 2024-05-06 | DI.US_ITS ---
Exam(s) US AAA SCREENING EXAM: US AAA SCREENING CLINICAL HISTORY: Z13.6 SCREENING CARDIOVASCULAR DISORDER, HX THROMBOEMBOLISM COMPARISON: CT CT CHEST PE CTA from 01/06/2020 FINDINGS: Abdominal Aorta: Proximal: 2.2 cm Mid: 2.1 cm Distal: 1.9 cm Iliacs: Right: 1.2 cm Left: 1.0 cm IMPRESSION: No evidence of abdominal aortic aneurysm. DATA REPOSITORY:
== END 2024-05-06 00:31 ==
LOC: DI 00:11
PROVIDERS: PCP Student in an Organized Health Care Education/Training Program; Visit Provider Student in an Organized Health Care Education/Training Program
DX: Z13.6 Encounter for screening for cardiovascular disorders (principal)
CPT/HCPCS: 76706

== ENCOUNTER 2024-10-26 10:36 | Outpatient (REF) | payer MEDICARE, BC, SELFPAY ==
[2024-10-26 15:54] LABS: Abs Immature Grans 0.02 10^3/uL (0.0-0.06); Absolute Basophil Count 0.02 10^3/uL (0.0-0.2); Absolute Eosinophil Count 0.12 10^3/uL (0.0-0.7); Absolute Lymphocyte Count 2.28 10^3/uL (1.2-3.4); Absolute Monocyte Count 0.51 10^3/uL (0.1-0.8); Absolute Neutrophil Count 3.06 10^3/uL (1.2-6.7); Basophils % 0.3 %; HCT 41.8 % (40.0-50.0); Immature Grans % 0.3 %; Lymphocytes % 37.9 %; MCH 30.8 pg (27.0-33.0); MCHC 33.5 % (32.0-36.0); MCV 92 fL (80-95); MPV 10.4 fL (8.0-11.0); Monocytes % 8.5 %; Platelet Count 182 10^3/uL (130-400); RBC 4.55 10^6/uL (4.36-5.78); RDW 12.8 % (11.8-14.1); RDW-SD 42.3 fL; WBC 6.01 10^3/uL (4.4-10.8)
[2024-10-26 16:07] LABS: Anion Gap 6.6 mmol/L (3-11); BUN 18 mg/dL (7-18); CO2 29.4 mmol/L (21.0-32.0); CREATININE 1.5 mg/dL (0.70-1.30); Chloride 105 mmol/L (98-107); Estimated GFR 46.19 (mL/min/1.73m2); Glucose 97 mg/dL (74-106); Potassium 4.6 mmol/L (3.5-5.1); Sodium 141 mmol/L (136-145)
== END 2024-10-26 10:37 | disposition home or self-care (01) ==
LOC: NCHCN 10:36
PROVIDERS: PCP Student in an Organized Health Care Education/Training Program; Visit Provider Student in an Organized Health Care Education/Training Program
DX: I10 Essential (primary) hypertension (principal)
CPT/HCPCS: 80048; 85025

== ENCOUNTER 2025-04-07 10:31 | Outpatient (REF) | payer MEDICARE, BC, SELFPAY ==
[2025-04-07 15:33] LABS: Abs Immature Grans 0.02 10^3/uL (0.0-0.06); HCT 40.1 % (40.0-50.0); HGB 13.4 g/dL (13.5-17.5); Immature Grans % 0.4 %; MCH 30.9 pg (27.0-33.0); MCHC 33.4 % (32.0-36.0); MCV 92 fL (80-95); MPV 10.1 fL (8.0-11.0); Platelet Count 179 10^3/uL (130-400); RBC 4.34 10^6/uL (4.36-5.78); RDW 12.2 % (11.8-14.1); RDW-SD 41.8 fL; WBC 4.74 10^3/uL (4.4-10.8)
[2025-04-07 16:11] LABS: ALT 20 U/L (16-63); AST 18 U/L (15-37); Albumin 3.8 g/dL (3.4-5.0); Alkaline Phosphatase 76 U/L (46-116); Anion Gap 8.5 mmol/L (3-11); BUN 20 mg/dL (7-18); Bilirubin, Total 0.8 mg/dL (0.2-1.0); CO2 28.5 mmol/L (21.0-32.0); Calcium 9.5 mg/dL (8.5-10.1); Chloride 102 mmol/L (98-107); Estimated GFR 46.19 (mL/min/1.73m2); Glucose 85 mg/dL (74-106); Potassium 4.0 mmol/L (3.5-5.1); Sodium 139 mmol/L (136-145); Total Protein 7.4 g/dL (6.4-8.2); Vitamin B12 751 pg/mL (193-986); Vitamin D 25 Total 55 ng/mL (30-100)
== END 2025-04-07 10:32 | disposition home or self-care (01) ==
LOC: NCHCN 10:31
PROVIDERS: PCP Student in an Organized Health Care Education/Training Program; Visit Provider Student in an Organized Health Care Education/Training Program
DX: K51.90 Ulcerative colitis, unspecified, without complications (principal); E55.9 Vitamin D deficiency, unspecified; K21.9 Gastro-esophageal reflux disease without esophagitis
CPT/HCPCS: 80053; 82306; 82607; 85025

== ENCOUNTER → 2025-06-12 01:01 | Outpatient (CLI) | payer MEDICARE, BC, SELFPAY ==
--- NOTE | 2025-06-12 | DI.US_ITS ---
Exam(s) US HERNIA EXAM: US HERNIA CLINICAL HISTORY: EVAL RT FEMORAL HERNIA,H/O RECENT INCREASE IN SIZE,PAIN,CURRENTLY. TECHNIQUE: Ultrasound was performed using standard protocol. COMPARISON: There are no priors for comparison. FINDINGS: Sonographic assessment utilizing grayscale and color Doppler imaging was performed and targeted to the area of clinical concern. There is a bowel and fat containing hernia in the right groin measuring 5.8 x 1.5 x 4.0 cm. There are no priors for comparison. IMPRESSION: Hernia seen in the right groin containing both fat and bowel. A CT scan may be considered for further characterization. DATA REPOSITORY:
== END ==
PROVIDERS: PCP Student in an Organized Health Care Education/Training Program; Visit Provider Nurse Practitioner Family
DX: K41.90 Unilateral femoral hernia, without obstruction or gangrene, not specified as recurrent (principal)
CPT/HCPCS: 76857